=== PATIENT | male | born 1985 | race Caucasian/White ===

== ENCOUNTER 2021-08-12 00:46 | Emergency (ER) | payer OTHER ==
[~2021-08-12] VITALS: Ht 175.3 cm; Wt 86.2 kg
[2021-08-12] MEDS ORDERED: ONDA4TAB5 PO (02:37)
[2021-08-12] MEDS ORDERED: OXYC-128 PO (02:37)
--- NOTE | 2021-08-12 03:38 | NUR ---
Pt cleared by EDMD reviewing the xrays. awaiting ct results, EDMD will write for DC after neg results are confirmed.
--- NOTE | 2021-08-12 03:42 | NUR ---
diagnositc tests all resulted negative. Pt will be DCed home via personal uber. Pt given DC instructions and med infor and pt confirmed understanding. pt's vss, PE wnl, denies any pain, sob, dizziness, n/v or discomfort. Pt dced home.
[2021-08-12 03:45] VITALS: BP 135/89
== END 2021-08-12 02:55 | disposition home or self-care (01) ==
LOC: ER 00:46
DX: S20.211A Contusion of right front wall of thorax, initial encounter (principal); S20.214A Contusion of middle front wall of thorax, initial encounter; S80.01XA Contusion of right knee, initial encounter; V49.40XA Driver injured in collision with unspecified motor vehicles in traffic accident, initial encounter; Y92.410 Unspecified street and highway as the place of occurrence of the external cause
CPT/HCPCS: 71101; 71120; A4663